=== PATIENT | male | born 1990 | race Caucasian/White ===

== ENCOUNTER 2021-03-31 08:48 | Emergency (ER) | payer MEDICAID ==
[~2021-03-31] VITALS: Ht 167.6 cm; Wt 72.6 kg
[2021-03-31 08:52] VITALS: BP 129/76
--- NOTE | 2021-03-31 08:59 | NUR ---
Patient ambulated to bed 12 with steady/even gait.
--- NOTE | 2021-03-31 09:10 | NUR ---
30 y/o M brought in from home with c/c bilateral feet numbness/tingling. Patient A&Ox4, ambulatory, states acute onset one week ago. Patient admits to meth use one week ago; reports he fell asleep standing up x 1 hour while locked out of home. Patient states numbness/tingling from that event that would come and go and has not alleviated with rest. Denies any medications prior to arrival. Bed locked in lowest position, side rail x 1, call light in reach. PMH/Sx/Meds: Denies NKA
--- NOTE | 2021-03-31 09:10 | NUR ---
Dr. Buitrago is evaluating patient at bedside.
--- NOTE | 2021-03-31 09:23 | NUR ---
Lab at bedside
[2021-03-31 09:44] LABS: BASOPHILS # (AUTO) 0.1 K/uL (0.00-0.22); BASOPHILS % (AUTO) 1.4 % (0.0-2.0); EOSINOPHILS # (AUTO) 0.1 K/uL (0-0.4); EOSINOPHILS % (AUTO) 1.6 % (0.0-4.0); HEMATOCRIT 43.2 % (36-52); HEMOGLOBIN 14.5 g/dL (12.0-18.0); LYMPHOCYTES # (AUTO) 1.6 K/uL (2.0-11.5); LYMPHOCYTES % (AUTO) 28.4 % (20.5-51.1); MEAN CORPUSCULAR HEMOGLOBIN 31 pg (27-31); MEAN CORPUSCULAR HGB CONC 34 g/dL (33-37); MEAN CORPUSCULAR VOLUME 90.6 fL (80-94); MONOCYTES # (AUTO) 0.4 K/uL (0.8-1.0); MONOCYTES % (AUTO) 6.8 % (1.7-9.3); NEUTROPHILS # (AUTO) 3.6 K/uL (1.8-7.7); NEUTROPHILS % (AUTO) 61.8 % (42.2-75.2); PLATELET COUNT (AUTO) 253 K/uL (140-450); RED BLOOD CELL COUNT(AUTO) 4.77 MIL/uL (4.20-6.10); RED CELL DISTRIBUTION WIDTH 12.8 % (11.6-13.7); WHITE BLOOD COUNT (AUTO) 5.8 K/uL (4.8-10.8)
[2021-03-31 09:55] LABS: TOTAL BILIRUBIN 0.3 mg/dL (0.0-1.0)
--- NOTE | 2021-03-31 10:18 | NUR ---
Dr. Buitrago is reevaluating patient at bedside.
[2021-03-31 10:19] VITALS: BP 129/76
--- NOTE | 2021-03-31 10:19 | NUR ---
Patient discharged with v/s stable. Written and verbal after care instructions given and explained. Patient verbalized understanding. Ambulatory with steady gait. All questions addressed prior to discharge. Advised to follow up with PMD.
== END 2021-03-31 10:19 | disposition home or self-care (01) ==
LOC: MED 08:48
DX: F15.10 Other stimulant abuse, uncomplicated (principal); R20.2 Paresthesia of skin
CPT/HCPCS: 36415; 80053; 83735; 85025; 99283